=== PATIENT | male | born 1955 | race Caucasian/White ===

== ENCOUNTER 2023-05-09 13:13 | Emergency (ER) | payer OTHER, MEDICARE, BC ==
[2023-05-09] MEDS ORDERED: Lidocaine 1% (PF) 30 ML VIAL ONE (14:04)
[2023-05-09] MEDS ORDERED: Bacitracin 1 PK ONE (15:23)
== END 2023-05-09 15:50 | disposition home or self-care (01) ==
LOC: CSHERS 13:13
DX: S61.211A Laceration without foreign body of left index finger without damage to nail, initial encounter (principal); W22.8XXA Striking against or struck by other objects, initial encounter; Y92.812 Truck as the place of occurrence of the external cause
CPT/HCPCS: 12002; J2001